=== PATIENT | male | born 1985 | race African-American/Black ===

== ENCOUNTER 2017-02-01 09:13 | Emergency (ER) | payer SELFPAY ==
[2017-02-01] MEDS ORDERED: Acetaminophen 325 MG Tab PO ONE (09:36)
[2017-02-01] MEDS ORDERED: Ketorolac 60 MG/2 ML SDV IM ONE (09:36)
--- NOTE | 2017-02-01 09:42 | EDM.PDOC ---
ED HPI GENERAL MEDICAL PROBLEM - General Chief Complaint: General Stated Complaint: HIGH BLOOD PREESURE Time Seen by Provider: 02/01/17 09:27 - History of Present Illness INITIAL COMMENTS - FREE TEXT/NARRATIVE: HISTORY AND PHYSICAL: History of present illness: The patient is a 31-year-old male with a history of hypertension who takes hydrochlorothiazide 50 mg every day and states he has been out of his medication last 2 weeks. The patient lives in [place] and says that he got a call to come here for work and did not refill his prescription prior to leaving. In fact he states that he was out of his medications for several days prior to leaving [place]. Since that time he has not seen her provider and had not refilled his prescription. Currently he presents today with a tightness in his head does not a headache in one localized area but a generalized sense of head discomfort without visual changes and he has no chest pain shortness of breath abdominal pain leg swelling abdominal pain vomiting. He says that he has been eating more processed foods but has been trying to watch the sodium intake. Patient did not take anything except one aspirin last evening for his headache pain. He denies that the headache is severe but he does feels like it's a tightness and he feels that his blood pressure is elevated. Patient states that since he has been on his blood pressure medication at home his blood pressure has been well controlled. Review of systems: As per history of present illness and below otherwise all systems reviewed and negative. Past medical history: As per history of present illness and as reviewed below otherwise noncontributory. Surgical history: As per history of present illness and as reviewed below otherwise noncontributory. Social history: No reported history of drug or alcohol abuse. Family history: As per history of present illness and as reviewed below otherwise noncontributory. Physical exam: Gen.: Well-developed well-nourished male who is nontoxic and speaking clearly and easily in the ED. His blood pressure does noted by me 186/101 HEENT: Atraumatic, normocephalic, pupils reactive, negative for conjunctival pallor or scleral icterus, mucous membranes moist, throat clear, neck supple, nontender, trachea midline. Lungs: Clear to auscultation, breath sounds equal bilaterally, chest nontender. Heart: S1S2, regular rate and rhythm no overt murmurs Abdomen: Soft, nondistended, nontender. NABS Skin: No overt rashes or lesions normal turgor Genitourinary: Deferred. Rectal: Deferred. Extremities: Atraumatic, negative for cords or calf pain. Neurovascular unremarkable. No pedal edema or leg asymmetry Neuro: Awake, alert, oriented. Cranial nerves II through XII unremarkable. Cerebellum unremarkable. Motor and sensory unremarkable throughout. Exam nonfocal. Diagnostics: [] Therapeutics: Toradol Tylenol I discussed with the patient that we would not emergently lower his blood pressure as it is likely mildly elevated due to his lack medications for the last 2 weeks. As he tells me that the medication controlled his blood pressure well in the past we will restarted at the same dose 50 mg every day. I've advised him on reasons to return to the ED and advised him to follow-up in our clinic for a repeat blood pressure check and possible medication change. He is comfortable with just treating his headache and restarting his medications and following up. Impression: Elevated blood pressure, medication refill with history of hypertension Definitive disposition and diagnosis as appropriate pending reevaluation and review of above. headache Pain Score (Numeric/FACES): 7 - Related Data Allergies Allergy/AdvReac Type Severity Reaction Status Date / Time No Known Allergies Allergy Verified 02/01/17 09:24 Home Meds: Home Meds Hydrochlorothiazide 50 mg PO DAILY 02/01/17 [History] Past Medical History Cardiovascular History: Reports: Hypertension - Past Surgical History Musculoskeletal Surgical History: Reports: Other (See Below) Other Musculoskeletal Surgeries/Procedures:: leg surgery Social & Family History - Family History Family Medical History: Noncontributory - Tobacco Use Smoking Status *Q: Never Smoker - Alcohol Use Days Per Week of Alcohol Use: 2 Number of Drinks Per Day: 3 Total Drinks Per Week: 6 - Recreational Drug Use Recreational Drug Use: No ED ROS GENERAL - Review of Systems Review Of Systems: ROS reveals no pertinent complaints other than HPI. ED EXAM, GENERAL - Physical Exam Exam: See Below (See dictation) Course - Vital Signs Last Recorded V/S: Last Vital Signs Temp 36.4 C 02/01/17 09:25 Pulse 78 02/01/17 09:25 Resp 18 02/01/17 09:25 BP 186/101 H 02/01/17 09:25 Pulse Ox 98 02/01/17 09:25 - Orders/Labs/Meds Orders: Active Orders 24 hr Category Date Time Status Acetaminophen [Tylenol] Med 02/01/17 09:36 Once 650 mg PO NOW ONE Ketorolac [Toradol] Med 02/01/17 09:36 Once 60 mg IM ONETIME ONE Medication Orders Acetaminophen (Tylenol) 650 mg PO NOW ONE Stop: 02/01/17 09:37 Ketorolac Tromethamine (Toradol) 60 mg IM ONETIME ONE Stop: 02/01/17 09:37 Meds: Medications Generic Name Dose Route Start Last Admin Trade Name Lilian PRN Reason Stop Dose Admin Acetaminophen 650 mg 02/01/17 09:36 Tylenol PO 02/01/17 09:37 NOW ONE Ketorolac Tromethamine 60 mg 02/01/17 09:36 Toradol IM 02/01/17 09:37 ONETIME ONE Departure - Departure Time of Disposition: 09:40 Disposition: Home, Self-Care 01 Condition: Good Clinical Impression: Medication refill Hypertension Qualifiers: Hypertension type: unspecified Qualified Code(s): I10 - Essential (primary) hypertension - Discharge Information Forms: ED Department Discharge Additional Instructions: The following information is given to patients seen in the emergency department who are being discharged to home. This information is to outline your options for follow-up care. We provide all patients seen in our emergency department with a follow-up referral. The need for follow-up, as well as the timing and circumstances, are variable depending upon the specifics of your emergency department visit. If you don't have a primary care physician on staff, we will provide you with a referral. We always advise you to contact your personal physician following an emergency department visit to inform them of the circumstance of the visit and for follow-up with them and/or the need for any referrals to a consulting specialist. The emergency department will also refer you to a specialist when appropriate. This referral assures that you have the opportunity for followup care with a specialist. All of these measure are taken in an effort to provide you with optimal care, which includes your followup. Under all circumstances we always encourage you to contact your private physician who remains a resource for coordinating your care. When calling for followup care, please make the office aware that this follow-up is from your recent emergency room visit. If for any reason you are refused follow-up, please contact the [facility] emergency department at and ask to speak to the emergency department charge nurse. JODY [facility] Primary care- Internal Medicine and Family [address] [address] Please fill your prescription for blood pressure medication and start taking them today. Please call our clinic for a follow-up appointment and return to ER as needed and as discussed. Please continue to watch your diet for sodium intake - My Orders Last 24 Hours: My Active Orders 02/01/17 09:36 Acetaminophen [Tylenol] 650 mg PO NOW ONE Ketorolac [Toradol] 60 mg IM ONETIME ONE - Assessment/Plan Last 24 Hours: My Active Orders 02/01/17 09:36 Acetaminophen [Tylenol] 650 mg PO NOW ONE Ketorolac [Toradol] 60 mg IM ONETIME ONE
[2017-02-01 10:18] VITALS: BP 174/109
== END 2017-02-01 10:16 | disposition home or self-care (01) ==
LOC: MW.ED 09:13
DX: Z76.0 Encounter for issue of repeat prescription (principal); I10 Essential (primary) hypertension; Z98.890 Other specified postprocedural states; Z79.899 Other long term (current) drug therapy
CPT/HCPCS: 96372; 99283; A9270; J1885